=== PATIENT | male | born 1995 | race African-American/Black ===

== ENCOUNTER 2018-09-05 15:20 | Emergency (ER) | payer OTHER ==
[2018-09-05] MEDS: AZITHROMYCIN 250 MG TAB PO (15:57)
[2018-09-05] MEDS: cefTRIAXone SOD 1 GM VIAL (J0696) IM (15:57)
[2018-09-05] MEDS: LIDOCAINE 1% MDV 20ML VIAL IM (15:58)
[2018-09-05 18:08] LABS: CHLAMYDIA DNA AMPLIFICATION POSITIVE (NEGATIVE); GC DNA AMPLIFICATION NEGATIVE (NEGATIVE)
== END 2018-09-05 16:19 | disposition home or self-care (01) ==
LOC: M ED 15:20
DX: Z20.2 Contact with and (suspected) exposure to infections with a predominantly sexual mode of transmission (principal); R30.0 Dysuria
CPT/HCPCS: J0696

== ENCOUNTER 2019-07-24 02:15 | Emergency (ER) | payer OTHER ==
[~2019-07-24] VITALS: Ht 185.4 cm; Wt 100.0 kg
[2019-07-24 02:16] VITALS: BP 134/63
[2019-07-24] MEDS ORDERED: ZYMA0.5S OS (03:23)
[2019-07-24] MEDS ORDERED: GATIFLOXACIN 0.5% 2.5ML OPHTH SOL OS ONE (03:30)
== END 2019-07-24 03:35 | disposition home or self-care (01) ==
LOC: M ED 02:15
DX: H10.32 Unspecified acute conjunctivitis, left eye (principal)

== ENCOUNTER 2020-03-13 00:36 | Emergency (ER) | payer OTHER ==
[~2020-03-13] VITALS: Ht 185.4 cm; Wt 70.5 kg
[2020-03-13 00:36] VITALS: BP 133/72
[~2020-03-13 00:36] MED LIST: ZYMA0.5S OS
[2020-03-13] MEDS ORDERED: TETRACAINE 0.5% OPHTH SOLN 4ML OU ONE (01:15)
[2020-03-13] MEDS ORDERED: OLOPATADINE 0.1% OPHTH SOL 5ML(PATANOL) OU STA (01:34)
[2020-03-13] MEDS ORDERED: OLOP0.1D OP (01:39)
[2020-03-13] MEDS ORDERED: ALL10TAB2 PO (01:39)
== END 2020-03-13 02:20 | disposition home or self-care (01) ==
LOC: M ED 00:36
DX: H10.13 Acute atopic conjunctivitis, bilateral (principal); F17.200 Nicotine dependence, unspecified, uncomplicated